=== PATIENT | female | born 1975 | race African-American/Black ===

== ENCOUNTER 2016-07-23 22:07 | Emergency (ER) | payer SELFPAY ==
[~2016-07-23] VITALS: Ht 170.2 cm; Wt 96.4 kg
[~2016-07-23 22:07] MED LIST: VENTAER INH
[2016-07-23 22:10] VITALS: BP 140/83; PULSE 80; RESP 18; TEMP 98.1; O2SAT 97
== END 2016-07-24 00:46 | disposition left against medical advice (07) ==
LOC: NED 22:07
DX: R68.89 Other general symptoms and signs (principal)
CPT/HCPCS: 99281